=== PATIENT | male | born 1960 | race Caucasian/White ===

== ENCOUNTER 2024-10-10 10:11 | Day surgery (SDC) | payer MEDICARE, SELFPAY ==
[2024-10-10 10:29] VITALS: BP 144/71; PULSE 70; RESP 16; TEMP 36.5; O2SAT 100
[2024-10-10] MEDS: LACTATED RINGERS 1,000 ML 42 ML IV (10:44)
--- NOTE | 2024-10-10 10:45 | SUR.PREOP ---
Patient had a vasovagal episode after IV was inserted. He turned bright red, got diaphoretic, held his breath, clenched his jaw and was unresponsive for about 15 seconds. Patient states I do this sometimes. He does not recall what the other precipitating events were when it has happened in the past but knows it has happened. He states he feels fine several minutes after event. During the event RN stayed by patients side, lowered head of the bed. After event RN put a cool cloth on patients head, kept his head down and put both side rails up. Patient states he is feeling fine.
--- NOTE | 2024-10-10 11:21 | P.HP_ITS ---
History of Present Illness History of Present Illness Date Patient Seen: 10/10/24 Time Patient Seen: 11:21 Chief complaint: SD Narrative: Bradly is a 64-year-old man who presents for a colonoscopy. His last colonoscopy was in 2010 and was normal. No family history of colon cancer. [facility] Surgical History Anesthesia History of appendectomy Family History (Updated 08/12/22 @ 10:12 by Hernandez Gomez DO) Father Cancer Mother No problems noted. Social History Smoking Status: Never smoker alcohol intake: current Meds Home Medications and Allergies Home Medications Medication Instructions Recorded Confirmed Type No Known Home Medications 10/09/24 10/09/24 History Allergies Allergy/AdvReac Type Severity Reaction Status Date / Time No Known Drug Allergies Allergy Unverified 05/03/24 11:20 Exam Vital Signs (past 8 hours): - 10/10/24 10:29 Temperature 97.7 F Pulse Rate 70 Respiratory Rate 16 Blood Pressure 144/71 H Pulse Oximetry 100 Oxygen Delivery Method Room Air Oxygen Delivery Method Room Air Const General: No acute distress Resp Effort & Inspection: normal respiratory effort Assessment & Plan Assessment and plan (1) Colon cancer screening: Status: Acute Plan Colonoscopy Time-Based Coding :: [TOTAL MINUTES] spent with patient and on the chart (including review of chart, obtaining history, exam, reviewing outside data, placing orders, documenting exam and treatment plan, and counseling patient) on [DATE]. [employer] Help Desk Manager Document charge(s): No
--- NOTE | 2024-10-10 12:00 | PM.OP.COLON ---
Operative Date/Time/Diagnoses Date of procedure: 10/10/24 Time of procedure: 12:00 Pre-op diagnosis: Colon cancer screening Post-op diagnosis: same Procedure & Clinicians Study performed: Colonoscopy Same procedure as scheduled: Yes Surgeon: Baljit Plasencia Procedure Notes Procedure in detail: Surgeon: Baljit Plasencia MD Anesthesia: Quinten Gupta MD Procedure: The patient was brought to the endoscopy suite, placed in left lateral decubitus position. The patient was connected to monitoring devices. A time-out was performed. Sedation was administered. Once the patient was adequately sedated, a digital rectal exam was performed and was normal. The scope was then inserted and advanced to the cecum where the appendiceal orifice was identified and photographed. The terminal ileum was intubated and no abnormalities were seen. The scope was then slowly withdrawn over greater than 6 minutes. The mucosa was thoroughly inspected. No abnormalities were found. The scope was retroflexed in the rectum. The scope was straightened and removed. The patient was awakened and brought to recovery. Scope withdrawal time: 6 minutes Sedation time: 11 minute EBL: 0 Findings: Normal colon Post-procedure Recommendations: Colonoscopy in 10 years Disposition: PACU
[2024-10-10 12:02] VITALS: BP 109/70; PULSE 59; RESP 16; TEMP 36.2; O2SAT 99
[2024-10-10 12:07] VITALS: BP 108/70; PULSE 50; RESP 16; O2SAT 98
== END 2024-10-10 12:27 | disposition home or self-care (01) ==
PROVIDERS: PCP Family Medicine; Referring Provider Surgery; Visit Provider Surgery
PROC: 0DJD8ZZ Inspection of Lower Intestinal Tract, Via Natural or Artificial Opening Endoscopic (ICD-10-PCS; CPT 45378; principal; 2024-10-10 11:30)
DX: Z12.11 Encounter for screening for malignant neoplasm of colon (principal)
CPT/HCPCS: G0121; J2704

== ENCOUNTER → 2024-10-31 07:32 | Outpatient (CLI) | payer MEDICARE, SELFPAY ==
[2024-10-31 08:19] LABS: Add Manual Diff / Slide Review NO; Basophils Absolute Auto 0 /uL (0-100); Basophils Percent Auto 1.2 % (0-2); Eosinophils Absolute Auto 200 /uL (0-450); Eosinophils Percent Auto 4.7 % (2-4); Hematocrit 39.7 % (41-53); Hemoglobin 13.5 g/dL (13.5-17.5); Lymphocytes Absolute Auto 1300 /uL (1100-4500); Lymphocytes Percent Auto 33.2 % (25-40); Mean Corpuscular Hemoglobin 31.8 PG (26-34); Mean Corpuscular Volume 93.5 fL (80-100); Monocytes Absolute Auto 300 /uL (0-900); Monocytes Percent Auto 7.7 % (3-14); Neutrophils Absolute Auto 2100 /uL (1500-7000); Neutrophils Percent Auto 53.2 % (50-75); Platelet Count 207 X10^3/uL (150-400); Red Blood Cell Count 4.24 X10^6/uL (4.5-5.9)
[2024-10-31 08:26] LABS: Alanine Aminotransferase 18 IU/L (<50); Albumin 4.7 g/dL (3.5-5.0); Albumin Globulin Ratio 2.4 (1.0-2.8); Alkaline Phosphatase 53 U/L (38-126); Aspartate Aminotransferase 28 IU/L (17-59); BUN Creatinine Ratio 20.2 (6-22); Bilirubin Total 1.1 mg/dL (0.2-1.3); Blood Urea Nitrogen 18 mg/dL (9-20); Calcium 9.6 mg/dL (8.4-10.2); Carbon Dioxide 29 mmol/L (22-32); Chloride 103 mmol/L (98-107); Cholesterol 166 mg/dL (140-199); Estimated Glomerular Filt Rate > 60 mL/min (>60); Glucose 84 mg/dL (70-99); HDL Cholesterol 86 mg/dL (40-60); HEMOLYSIS < 15 (0-50); LDL Cholesterol Calculated 63 mg/dL (<100); Potassium 4.4 mmol/L (3.4-5.1); Sodium 138 mmol/L (137-145); Total Protein 6.7 g/dL (6.3-8.2); Triglycerides 87 mg/dL (35-150)
[2024-10-31 08:57] LABS: Prostate Specific Antigen Scrn 1.04 ng/mL (0.1-4.0)
== END ==
PROVIDERS: PCP Family Medicine; Referring Provider Family Medicine; Visit Provider Family Medicine
DX: Z13.220 Encounter for screening for lipoid disorders (principal); Z12.5 Encounter for screening for malignant neoplasm of prostate
CPT/HCPCS: 36415; 80053; 80061; 85025; G0103